=== PATIENT | male | born 1985 | race Caucasian/White ===

== ENCOUNTER 2024-01-08 16:33 | Emergency (ER) | payer OTHER, SELFPAY ==
[2024-01-08 16:42] VITALS: BP 140/100; PULSE 80; TEMP 36.4; O2SAT 96; BMI 68.4
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
== END 2024-01-08 17:10 | disposition home or self-care (01) ==
PROVIDERS: Emergency Provider Emergency Medicine; PCP Internal Medicine
DX: S16.1XXA Strain of muscle, fascia and tendon at neck level, initial encounter (principal); V43.62XA Car passenger injured in collision with other type car in traffic accident, initial encounter
CPT/HCPCS: 99281